=== PATIENT | male | born 1980 | race African-American/Black ===

== ENCOUNTER 2023-05-30 14:23 | Emergency (ER) | payer OTHER ==
[~2023-05-30] VITALS: Ht 185.4 cm; Wt 79.4 kg
[2023-05-30 14:40] VITALS: BP_SYST 128; PULSE 73; RESP 20; TEMP 98.3; O2SAT 98
[2023-05-30] MEDS: KETOROLAC TROMETHAMINE 60 MG/2 ML VIAL IM ONE (15:05)
[2023-05-30] MEDS: predniSONE 20 MG TABLET PO ONE (15:06)
[2023-05-30] MEDS ORDERED: METH-634 PO (15:41)
[2023-05-30] MEDS ORDERED: TRAM50TA2 PO (15:41)
[2023-05-30] MEDS ORDERED: IBUP-1969 PO (15:41)
== END 2023-05-30 15:40 | disposition home or self-care (01) ==
LOC: SED 14:23
DX: M54.30 Sciatica, unspecified side (principal); Z79.899 Other long term (current) drug therapy
CPT/HCPCS: 99283; 72100; 96372; J7512; J1885